=== PATIENT | female | born 1995 | race Hispanic/Latino ===

== ENCOUNTER 2018-01-29 04:12 | Emergency (ER) | payer OTHER ==
[2018-01-29 04:25] VITALS: RESP 18
--- NOTE | 2018-01-29 04:37 | C.PDOC ---
History Of Present Illness 22 y/o female presents to the ED requesting medical clearance s/p possible exposure to gas. Patient complains of intermittent fatigue and difficulty breathing over the last few days. States there was a gas leak in her apartment 1 week ago, prompting concern. Patient denies any other known exposure, states there are multiple carbon monoxide meters in her building and room but that alarm did not go off. Otherwise she denies any recent travel, surgery, blood clot, leg swelling, chest pain, or hemoptysis. No burning of any materials. Patient is unaware of any other tenants affected by exposure. Time Seen by Provider: 01/29/18 04:37 Chief Complaint (Nursing): Medical Clearance History Per: Patient History/Exam Limitations: no limitations Onset/Duration Of Symptoms: Days Current Symptoms Are (Timing): Still Present Past Medical History Reviewed: Historical Data, Nursing Documentation, Vital Signs Vital Signs: Last Vital Signs Temp 97.8 F 01/29/18 04:20 Pulse 64 01/29/18 04:20 Resp 18 01/29/18 04:20 BP 111/78 01/29/18 04:20 Pulse Ox 98 01/29/18 05:32 - Medical History PMH: No Chronic Diseases Surgical History: No Surg Hx Family History: States: No Known Family Hx - Social History Hx Tobacco Use: No Hx Alcohol Use: No Hx Substance Use: No Review Of Systems Constitutional: Positive for: Weakness (fatigue). Negative for: Fever, Sweats Cardiovascular: Positive for: Other (chest feels tight). Negative for: Palpitations Respiratory: Negative for: Cough, Shortness of Breath, Hemoptysis Gastrointestinal: Negative for: Nausea, Vomiting Neurological: Negative for: Weakness, Numbness, Incoordination, Change in Speech , Headache, Dizziness Physical Exam - Physical Exam Appears: Non-toxic, No Acute Distress Skin: Warm, Dry Head: Atraumatic, Normacephalic Eye(s): bilateral: Normal Inspection, PERRL, EOMI Oral Mucosa: Moist Neck: Normal, Normal ROM, Trachea Midline, No Midline Cervical Tenderness, No Paracervical Tenderness, Supple Chest: Symmetrical Cardiovascular: Rhythm Regular, Other (no rub) Respiratory: No Rales, No Rhonchi, No Wheezing Gastrointestinal/Abdominal: Soft, No Tenderness, No Distention Extremity: Bilateral: Atraumatic, Normal Color And Temperature, Normal ROM Pulses: Left Dorsalis Pedis: Normal, Right Dorsalis Pedis: Normal Neurological/Psych: Oriented x3, Normal Speech, Normal Cognition, Normal Cranial Nerves, Cerebellar Signs, Normal Motor, Normal Sensation Gait: Steady ED Course And Treatment - Laboratory Results Result Diagrams: 01/29/18 05:14 01/29/18 05:14 O2 Sat by Pulse Oximetry: 98 (RA) Pulse Ox Interpretation: Normal Medical Decision Making Medical Decision Making: U/L CO poisoning given time delay as well as negative CO monitor detection. Pt notes she has multiple CO detectors with good batteries. Exposure to CO 1 week prior would likely have resolved by now. No sulfur smell to exposed gas. Initial Plan: --Labs --EKG --Chest x-ray 0625 labs, ekg unremarkable XR unremarkable ambulating well w/ o2 sat at 100% clear for d/c home Disposition - Disposition Disposition: HOME/ ROUTINE Disposition Time: 06:27 Condition: GOOD Forms: [facility] (Faroese) - Clinical Impression Clinical Impression: Medical assessment - Scribe Statement The provider has reviewed the documentation as recorded by the Adalberto Gaines Provider Attestation: All medical record entries made by the Scribe were at my direction and personally dictated by me. I have reviewed the chart and agree that the record accurately reflects my personal performance of the history, physical exam, medical decision making, and the department course for this patient. I have also personally directed, reviewed, and agree with the discharge instructions and disposition.
[2018-01-29 05:17] LABS: BASO % 0.2 % (0.0-2.0); HEMOGLOBIN 12.9 g/dL (11.0-16.0); LYMPH # 1.9 K/uL (1.0-4.3); LYMPH % 18.1 % (20.0-40.0); MEAN CELL VOLUME 83.1 fL (81.0-99.0); MEAN CORPUSCULAR HEMOGLOBIN 28.5 pg (27.0-31.0); MEAN CORPUSCULAR HGB CONC 34.3 g/dL (33.0-37.0); MEAN PLATELET VOLUME 8.1 fL (7.2-11.7); MONO # 0.8 K/uL (0.0-0.8); MONO % 7.2 % (0.0-10.0); NEUT # 7.8 K/uL (1.8-7.0); NEUT % 74.5 % (50.0-75.0); RBC 4.51 Mil/uL (3.80-5.20); RED CELL DISTRIBUTION WIDTH 13.1 % (11.5-14.5); WHITE BLOOD COUNT 10.5 K/uL (4.8-10.8)
[2018-01-29 05:35] LABS: ALB/GLOB RATIO 1.5 (1.0-2.1); ALBUMIN 4.1 g/dL (3.5-5.0); ALT/SGPT 27 U/L (9-52); AST/SGOT 19 U/L (14-36); BLOOD UREA NITROGEN 13 mg/dL (7-17); CALCIUM 9.1 mg/dl (8.6-10.4); GFR NON-AFRICAN AMERICAN > 60
[2018-01-29 05:43] LABS: B-TYPE NATRIURETIC PEPTIDE 78.2 pg/mL (0-450)
[2018-01-29 06:46] VITALS: BP 108/72; PULSE 66; TEMP 98.5; O2SAT 99
--- NOTE | 2018-01-29 10:50 | RAD ---
HISTORY: sob COMPARISON: None available. TECHNIQUE: Chest PA and lateral FINDINGS: LUNGS: No focal consolidation. Please note that chest x-ray has limited sensitivity for the detection of pulmonary masses. PLEURA: No significant pleural effusion identified. No definite pneumothorax . CARDIOVASCULAR: The cardiomediastinal silhouette appears within normal limits of size. OSSEOUS STRUCTURES: No acute osseous abnormality identified. VISUALIZED UPPER ABDOMEN: Unremarkable. OTHER FINDINGS: None. IMPRESSION: No focal consolidation, significant pleural effusion, or definite pneumothorax identified.
--- NOTE | 2018-01-31 07:07 | CARD ---
APPROVED REPORT Date of service: 01/29/2018 EKG Measurement Heart [id number] <Conclusion> Sinus rhythm with sinus arrhythmia with short LA Otherwise normal ECG
== END 2018-01-29 06:46 | disposition home or self-care (01) ==
LOC: C.ER 04:12
DX: Z00.00 Encounter for general adult medical examination without abnormal findings (principal)